=== PATIENT | female | born 1945 | race Caucasian/White ===

== ENCOUNTER 2017-09-07 18:51 | Emergency (ER) | payer OTHER ==
[~2017-09-07] VITALS: Ht 160 cm; Wt 95.7 kg
--- OUTSIDE RECORDS SUMMARY | 2017-09-07 18:54 | XMS REPORT | Summary of Care ---
Author Author Abena Arenas M.A. Unknown Address Unknown Phone Unavailable Care Team Providers Care Train Planner Name Role Phone DEZ Randolph, JOSE Unavailable Unavailable JOSEPHINE TINOCO M.D. Unavailable Unavailable BELLA KRAFT MD, BOO Darden Unavailable Unavailable Jose Rodriguez MD Unavailable Unavailable Unavailable Unavailable Functional Status Name Dates Details Functional status health issues are not documented Status: Name Dates Details Cognitive status health issues are not documented Status: Problems Name Dates Details Other symptom or sign involving genitourinary system (788.99, R39.89) Status: Active Sodium deficiency (276.1, E87.1) Status: Active Ataxia (781.3, R27.0) Status: Active Urinary tract infection (599.0, N39.0) Status: Active Hypothyroidism (244.9, E03.9) Status: Active 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, M47.812) Status: Active Post-menopausal (V49.81, Z78.0) Status: Active Thumb pain (729.5, M79.646) Status: Active Thyroiditis (245.9, E06.9) Status: Active Concussion (850.9, S06.0X9A) Status: Active History of Falls frequently (V15.88, R29.6) Status: Resolved Obstructive sleep apnea (327.23, G47.33) Status: Active Abnormal creatinine clearance glomerular filtration (794.4, R94.4) Status: Active Foot pain (729.5, M79.673) Status: Active Lumbago (724.2, M54.5) Status: Active Arrhythmia (427.9, I49.9) Status: Active Nonintractable epilepsy without status epilepticus (345.90, G40.909) Status: Active Hip pain, acute, left (719.45, M25.552) Status: Active 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 * Start : 16-Apr-2017 Active Dilantin 100 MG Oral Capsule TAKE 2 CAPSULES BY MOUTH IN THE MORNING AND 1 CAPSULE IN THE EVENING * Quantity: 270 Refills: 3 JOSEPHINE TINOCO M.D. * Start : 09-Oct-2011 Active Dilantin Infatabs 50 MG Oral Tablet Chewable CHEW 1 TABLET DAILY * Quantity: 90 Refills: 2 JOSEPHINE TINOCO M.D. * Start : 01-Dec-2016 Active Flonase 50 MCG/ACT SUSP * Refills: 0 * Start : 27-Sep-2012 Active Primidone 250 MG Oral Tablet TAKE TWO AND ONE-HALF TABLETS DAILY. ONE IN THE MORNING ONE AND ONE-HALF IN THE EVENING. * Quantity: 225 Refills: 3 JOSEPHINE TINOCO M.D. * Start : 27-Sep-2012 Active Citalopram Hydrobromide 20 MG Oral Tablet TAKE 2 TABLET DAILY * Quantity: 180 Refills: 2 JOSEPHINE TINOCO M.D. * Start : 08-Jul-2014 Active Topiramate 25 MG Oral Tablet TAKE 1 TABLET BY MOUTH EVERY DAY FOR 2 WEEKS THEN 1 TABLET TWICE DAILY * Quantity: 60 Refills: 0 JOSEPHINE TINOCO M.D. * Start : 23-Aug-2017 Active Zoey Allergy 180 MG Oral Tablet TAKE 1 TABLET DAILY. * Refills: 0 * Start : 28-Jul-2015 Active Aspirin 81 MG TABS TAKE 1 TABLET DAILY. * Refills: 0 * Start : 28-Jul-2015 Active Caltrate 600+D 600-400 MG-UNIT CHEW TAKE 2 TABLET DAILY * Refills: 0 * Start : 28-Jul-2015 Active Mucinex 600 MG Oral Tablet Extended Release 12 Hour TAKE 1 TABLET DAILY * Refills: 0 * Start : 28-Jul-2015 Active Vitamin D 1000 UNIT Oral Tablet TAKE 1 TABLET DAILY. * Refills: 0 * Start : 28-Jul-2015 Active Vitamin E 400 UNIT Oral Capsule TAKE 2 CAPSULE DAILY * Refills: 0 * Start : 28-Jul-2015 Active Tylenol Arthritis Pain 650 MG TBCR * Refills: 0 * Start : 28-Jul-2015 Active Voltaren 1 % Transdermal Gel Apply 1 inch to affected area twice daily as needed for pain. * Quantity: 1 Refills: 1 JOSE RODRIGUEZ M.D. * Start : 28-Jul-2015 Active 100 GM Tube (3 Tubes) Systane Balance 0.6 % SOLN INSTILL 1 DROP BEDTIME * Refills: 0 * Start : 15-Oct-2015 Active Systane Nighttime Ophthalmic Ointment APPLY 1/2 INCH RIBBON IN LOWER CONJUNCTIVAL SAC AT BEDTIME NIGHTLY. * Refills: 0 * Start : 15-Oct-2015 Active Citalopram Hydrobromide 20 MG Oral Tablet TAKE 2 TABLET DAILY * Quantity: 180 Refills: 3 JOSEPHINE TINOCO M.D. * Start : 22-Aug-2016 Active Meloxicam 7.5 MG Oral Tablet TAKE 1 TABLET DAILY NEEDED. * Quantity: 30 Refills: 4 JOSE RODRIGUEZ M.D. * Start : 08-Dec-2016 Active Allergies and Adverse Reactions Name Dates Details Adhesive Tape TAPE (Allergy) Reaction: Other, Rash Status: Active Comments: Reaction Date:Childhood Tetanus Toxoids (Allergy) Reaction: Hives, Other Status: Active Comments: Reaction Date:Unknown Past Medical History Name Dates Details Nonintractable epilepsy without status epilepticus (345.90, G40.909) Status: Active History of Falls frequently (V15.88, R29.6) Status: Resolved Procedures Procedure Dates Details EKG w/Rhythm Strip Date: 03-Jul-2017 [[facility]] CBC (INCLUDES DIFF/PLT) Date: 05-Jul-2017 [[facility]] CMP W/EGFR Date: 05-Jul-2017 [[facility]] PHENYTOIN, FREE Date: 05-Jul-2017 [[facility]] PHENYTOIN Date: 05-Jul-2017 [[facility]] PRIMIDONE Date: 05-Jul-2017 Immunization Name Dates Details Immunizations not documented Family History Name Dates Details Family history of Sjogren Syndrome Status: Active Family history of Hypertension (V17.49) Status: Active Name Dates Details Family history of Stroke Syndrome (V17.1) Status: Active Family history of Heart Disease (V17.49) Status: Active Social History Name Dates Details - Status: Name Dates Details Unknown if ever smoked Never smoker Vital Signs Date Test Result Details No Known Vitals to report Results Date Description Value Details Results not documented Plan of Care Name Dates Details Planned Observations Planned Goals not documented Planned Encounters Appointment; JOSEPHINE TINOCO M.D. On: 31-Oct-2017 9:00 Instructions Name Dates Details Instructions not documented Encounters Appointment; JOSE RODRIGUEZ M.D. Encounter Diagnosis: Problem not documented On: 15-Oct-2015 10:00 Appointment; JOSE RODRIGUEZ M.D. Encounter Diagnosis: Problem not documented On: 09-Nov-2015 15:00 Appointment; JOSEPHINE TINOCO M.D. Encounter Diagnosis: Problem not documented On: 11-Nov-2015 13:30 Appointment; JOSEPHINE TINOCO M.D. Encounter Diagnosis: Problem not documented On: 02-Dec-2015 8:00 Appointment; MAXIMO MARCELO M.D. Encounter Diagnosis: Problem not documented On: 03-Apr-2016 15:00 Appointment; JOSEPHINE TINOCO M.D. Encounter Diagnosis: Problem not documented On: 04-May-2016 14:00 Appointment; JOSEPHINE TINOCO M.D. Encounter Diagnosis: Problem not documented On: 21-Jun-2016 12:30 Appointment; JOSE RODRIGUEZ M.D. Encounter Diagnosis: Problem not documented On: 21-Jun-2016 15:00 Appointment; JOSEPHINE TINOCO M.D. Encounter Diagnosis: Problem not documented On: 22-Aug-2016 14:00 Appointment; JOSE RODRIGUEZ M.D. Encounter Diagnosis: Problem not documented On: 08-Dec-2016 10:30 Appointment; JOSEPHINE TINOCO M.D. Encounter Diagnosis: Problem not documented On: 28-Dec-2016 14:30 Appointment; JOSEPHINE TINOCO M.D. Encounter Diagnosis: Problem not documented On: 05-Jul-2017 14:00
--- OUTSIDE RECORDS SUMMARY | 2017-09-07 18:54 | XMS REPORT | Clinical Summary ---
Author Author [facility] [employer] [facility] Address Unknown Phone Unavailable Care Team Providers Care Technical Sales Consultant Name Role Phone Jomar Camacho MD PCP Allergies Active Allergy Reactions Severity Noted Date Comments Adhesive Tape-Silicones Tetanus Toxoid, Adsorbed Current Medications Prescription Sig. Disp. Refills Start End Date Status Date fexofenadine (PTARICA) Patrica Allergy 180 MG 07/28/19 Active 180 MG tablet Oral Tablet 16 TAKE 1 TABLET DAILY. Refills: 0 Started 28-Jul-2015 Active aspirin (ECOTRIN) 81 MG Aspirin 81 MG TABS 07/28/19 Active enteric coated tablet TAKE 1 TABLET DAILY. 16 Refills: 0 Started 28-Jul-2015 Active calcium carbonate-vitamin Caltrate 600+D 600-400 07/28/19 Active D3 (CALCIUM 600 WITH MG-UNIT CHEW 16 VITAMIN D3) 600 TAKE 2 TABLET DAILY mg(1,500mg) -400 unit Refills: 0 tablet,chewable Started 28-Jul-2015 Active citalopram (CeleXA) 20 MG 08/23/19 Active tablet 17 folic acid (FOLVITE) 1 MG 07/22/19 Active tablet 17 DILANTIN EXTENDED 100 mg 08/03/19 Active ER capsule 17 primidone (MYSOLINE) 250 09/06/19 Active MG tablet 17 topiramate (TOPAMAX) 25 TK 1 T PO QD FOR 2 WEEKS 11 09/24/19 Active MG tablet THEN 1 T BID 17 Active Problems Problem Noted Date Protrusion of lumbar intervertebral disc 10/06/2016 Lumbar spinal stenosis 10/06/2016 Encounters Date Type Specialty Care Team Description 12/14/2016 Telephone Ortho Sports Medicine Maia Deng MA 11/01/2016 Office Visit Ortho Sports Medicine Taco Jackson MD Lumbar spinal stenosis (Primary Dx); Protrusion of lumbar intervertebral disc 11/01/2016 Telephone Orthopedic Surgery Taco Jackson MD 10/17/2016 Telephone Orthopedic Surgery Taco Jackson MD 10/09/2016 Orders Only Orthopedic Surgery Genet Webb MA Protrusion of lumbar intervertebral disc (Primary Dx); Lumbar spinal stenosis 10/06/2016 Office Visit Ortho Sports Medicine Taco Jackson MD Low back pain, unspecified back pain laterality, unspecified chronicity, with sciatica presence unspecified (Primary Dx); Protrusion of lumbar intervertebral disc; Lumbar spinal stenosis after 09/06/2016 Family History Medical History Relation Name Comments Cancer Brother No Known Problems Father Cancer Maternal Grandmother No Known Problems Mother Relation Name Status Comments Brother Father Maternal Grandmother Mother Social History Tobacco Use Types Packs/Day Years Used Date Never Smoker Alcohol Use Drinks/Week oz/Week Comments No Sex Assigned at Date Recorded Not on file Last Filed Vital Signs Not on file Plan of Treatment Health Maintenance Due Date Last Done Comments COLONOSCOPY 1995 MAMMOGRAM 1995 ZOSTER VACCINE 2005 PNEUMOCOCCAL 2010 POLYSACCHARIDE VACCINE AGE 65 AND OVER PNEUMOCOCCAL-13 2010 INFLUENZA VACCINE 12/26/2017 Results Not on fileafter 09/06/2016 Insurance Payer Benefit Subscriber ID Type Phone Address Plan / Group MULTIPLAN ALLIED/PHC xxxxxxx PPO S-[id number]
[2017-09-07] MEDS ORDERED: CITALOPRAM HBR20 MG PO (19:53)
[2017-09-07] MEDS ORDERED: MYSOLINE250 MG PO (19:53)
[2017-09-07] MEDS ORDERED: DILANTIN100 MG (19:53)
[2017-09-07] MEDS ORDERED: TOPAMAX25 MG (19:53)
[2017-09-07 20:35] VITALS: BP 127/76
== END 2017-09-07 20:20 | disposition home or self-care (01) ==
LOC: FSED 18:51
DX: M54.2 Cervicalgia (principal); S16.1XXA Strain of muscle, fascia and tendon at neck level, initial encounter; W01.198A Fall on same level from slipping, tripping and stumbling with subsequent striking against other object, initial encounter; M47.812 Spondylosis without myelopathy or radiculopathy, cervical region
CPT/HCPCS: 72040; 99283